=== PATIENT | female | born 1980 | race Caucasian/White ===

== ENCOUNTER 2017-08-16 13:06 | Emergency (ER) | payer BC, OTHER ==
[~2017-08-16] VITALS: Ht 167.6 cm; Wt 70.3 kg
[~2017-08-16 13:06] MED LIST: IRON18TA2 PO; OXYC1SOL5 PO; PRENCAP6 PO
--- NOTE | 2017-08-16 15:05 | MH ---
cc: ADAMARIS SARAVIA DATE OF ADMISSION: 08/16/2017 HISTORY OF PRESENT ILLNESS The patient is a 36-year-old, white female, currently with EDC of 09/11/2017. She was very active last evening with walking and overnight last evening had some low back pain, some lower abdominal groin type discomfort and was concerned about possible labor. She felt like the baby has dropped lower. She has had a little bit of nausea but no vomiting. Her bladder and bowel function have been normal. There has been no discharge or bleeding, no fever. PHYSICAL EXAMINATION On exam this is a gravid white female in no distress. The abdomen is gravid and nontender. The back is normal. An area of discomfort in the region of the round ligaments. The cervix is long, thick and closed. ASSESSMENT Back and pelvic pain, probably due to enlarging and some descent of the head. PLAN Will check UA and C&S, monitoring. If normal will discharge home on rest, heating pad and Tylenol. Return to the center if active signs of labor, leakage of fluid or decreased movement. She has an office visit tomorrow with a BPP and will keep that appointment. MD MANJU Reilly/RAUL /2:53 PM /2:59 PM
[2017-08-16 15:37] LABS: BACTERIA, URINE FEW /hpf; BLOOD, URINE NEG (NEG); COMMENT (UR) CULT NOT INDICATED; CULTURE IF INDICATED CULT NOT INDICATED; GLUCOSE,URINE NEG (NEG); KETONE, URINE NEG (NEG); NITRITE,URINE NEG (NEG); PH, URINE 6.5 (5.0-8.5); SQUAMOUS EPITHELIAL CELL URINE 7 /hpf (0-5); TRANSITIONAL EPI CELLS, URINE <1 /hpf; URINE COLOR COLORLESS (YELLW/STRAW)
--- NOTE | 2017-08-16 16:04 | PD ---
HPI Chief Complaint Patient was seen, evaluated, and examined by Dr. Marino. Dr. Marino requested I placed discharge orders as he is already left the hospital. Travel History International Travel<30 Days: No Contact w/Intl Traveler<30Days: No Known Affected Area: No Allergies-Medications (Allergen,Severity, Reaction): Coded Allergies: No Known Allergies (Unverified Adverse Reaction, Unknown, 08/16/17) Home Meds Active Scripts Oxycodone W/ Acetaminophen (Oxycodone/Acetaminophen 5-325 mg/5Ml) 5 mg/325 mg Tab, 1 TAB PO Q4H Y for PAIN SCALE 1 TO 4, #30 TAB Prov:Jose Marino MD 05/19/16 Reported Medications Ferrous Fumarate (Iron) 18 Mg Tab, 18 MG PO DAILY, TAB 05/17/16 Mv & Min W/Fe Fumarat ( 1) Cap, 1 CAP PO, CAP 07/31/13 Data Data Orders Orders Urinalysis - C+S If Indicated (08/16/17 14:54) Labs Laboratory Tests Test 08/16/17 14:00 Urine Color COLORLESS Urine Turbidity HAZY Urine pH 6.5 Urine Specific [place] 1.002 Urine Protein NEG Urine Glucose (UA) NEG Urine Ketones NEG Urine Occult Blood NEG Urine Nitrite NEG Urine Bilirubin NEG Urine Urobilinogen LESS THAN 2.0 Urine Leukocyte Esterase MOD Urine RBC 2 Urine WBC 6 Urine Squamous Epithelial Cells 7 Urine Transitional Epithelial Cells <1 Urine Bacteria FEW Microscopic Urinalysis Comment CULT NOT INDICATED MDM Diagnosis Diagnosis: Primary Impression: 36 weeks gestation of Additional Impression: False labor before 37 completed weeks of gestation Disposition: 01 DISCHARGE HOME Condition: Tyesha Brannon MD Aug 16, 2017 16:04
== END 2017-08-16 16:32 | disposition home or self-care (01) ==
LOC: HOBED 13:06
DX: O47.03 False labor before 37 completed weeks of gestation, third trimester (principal); Z3A.36 36 weeks gestation of pregnancy
CPT/HCPCS: 59025; 81001

== ENCOUNTER 2017-09-04 05:31 | Inpatient (IN) | payer OTHER ==
--- NOTE | 2017-09-03 20:21 | MH ---
cc: ADAMARIS SARAVIA DATE OF ADMISSION: 09/04/2017 ADMITTING DIAGNOSIS: 1. Term . 2. Advanced maternal age. 3. Previous x2. HISTORY OF PRESENT ILLNESS: 36-year-old white female para 2-0-1-2, last menstrual period of 11/25/2016, estimated date of confinement of 09/01/2017 by dates and 09/11/2017 by early ultrasound. Her preop course was benign. First TM screen and cfDNA testing was normal. PAST SURGICAL HISTORY: Laparoscopy in 2009. MEDICATIONS: Vitamins. ALLERGIES: NONE. TRANSFUSIONS: None. OB HISTORY: One ectopic, treated medically and two sections. SOCIAL HISTORY: She is . 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 Alcohol, tobacco and drugs: None. FAMILY HISTORY: Noncontributory. PHYSICAL EXAMINATION: GENERAL: A well-nourished well-developed white female. VITAL SIGNS: Stable. HEAD, EYES, EARS, NOSE, THROAT: Normal. CHEST: Clear. HEART: Regular rate. BREASTS: Symmetrical. ABDOMEN: Gravid. Estimated weight 3700 grams. PELVIC EXAM: The cervix is closed. Ext is normal. ASSESSMENT: As above. She is now admitted for repeat section. While in the office, I explained the procedures, the risks, benefits, complications and alternatives and the patient would like to proceed. Her last ultrasound on 08/31/17 showed a vertex presentation, normal fluid and anterior placenta. MD MANJU Reilly/GUSTAVO /7:59 PM /8:17 PM JANAK
[~2017-09-04] VITALS: Ht 167.6 cm; Wt 70.0 kg
[2017-09-04] VITALS (8 sets, daily range): BP systolic 104–128; BP diastolic 61–79; PULSE 62–81; RESP 16–18; TEMP 97.3–98.6; O2SAT 99–100
[2017-09-04] MEDS ORDERED: ACETAMINOPHEN 1000 MG/100 ML 100 ML IV ONE (06:44)
[2017-09-04] MEDS: LACTATED RINGER'S 1000 ML IV SCH ×2 (06:45→20:05)
[2017-09-04] MEDS ORDERED: LACTATED RINGER'S 1000 ML IV ONE (06:45)
[2017-09-04 06:59] LABS: AUTOMATED NEUTROPHIL # 4.5 TH/MM3 (1.8-7.7); BASOPHIL % 0.4 % (0.0-2.0); EOSINOPHIL # 0.1 TH/MM3 (0-0.4); EOSINOPHIL % 1.7 % (0.0-4.0); HEMATOCRIT 39.7 % (35.0-46.0); HEMO FLAGS DIFF FINAL; LYMPH % 33.7 % (9.0-44.0); LYMPHOCYTE # 2.6 TH/MM3 (1.0-4.8); MEAN CELL VOLUME 92.2 FL (80.0-100.0); MEAN CORPUSCULAR HEMOGLOBIN 31.9 PG (27.0-34.0); MEAN CORPUSCULAR HGB CONC 34.5 % (32.0-36.0); MONO % 6.1 % (0.0-8.0); NEUT % 58.1 % (16.0-70.0); PLATELET COUNT 141 TH/MM3 (150-450); RED BLOOD COUNT 4.31 MIL/MM3 (4.00-5.30); RED CELL DISTRIBUTION WIDTH 15.2 % (11.6-17.2); WHITE BLOOD COUNT 7.7 TH/MM3 (4.0-11.0)
[2017-09-04] MEDS ORDERED: ceFAZolin 2 GM PREMIX 50 ML IV SCH (07:00)
[2017-09-04] MEDS ORDERED: CITRIC ACID-SODIUM CITRATE LIQ 30 ML UDC PO SCH (07:00)
[2017-09-04] MEDS ORDERED: ONDANSETRON HCL 4 MG/2 ML VIAL IVP PRN (07:15)
[2017-09-04] MEDS ORDERED: MEASLES, MUMPS, RUBELLA VACCINE 0.5 ML VIAL SQ ONE (07:15)
[2017-09-04] MEDS ORDERED: oxyCODONE/ACETAMINOPHEN 5 MG/325 MG TAB PO PRN ×2 (07:15)
[2017-09-04] MEDS ORDERED: DOCUSATE SODIUM 50 MG/SENNA 8.6 MG TAB PO PRN (07:15)
[2017-09-04] MEDS ORDERED: OXYTOCIN 30 UNITS-500ML PREMIX 500 ML IV ONE (07:15)
[2017-09-04] MEDS ORDERED: KETOROLAC TROMETHAMINE 30 MG/ML (IVP) VIAL IV PUSH PRN (07:15)
[2017-09-04] MEDS ORDERED: ZOLPIDEM TARTRATE 5 MG TAB PO PRN (07:15)
[2017-09-04] MEDS ORDERED: SIMETHICONE 80 MG CHEWABLE TAB PO PRN (07:15)
[2017-09-04] MEDS: ACETAMINOPHEN 1000 MG/100 ML VIAL IV SCH ×3 (07:15→23:15)
[2017-09-04] MEDS ORDERED: KETOROLAC TROMETHAMINE 60 MG/2 ML (IM) VIAL IM PRN (07:15)
[2017-09-04] MEDS ORDERED: SODIUM CHLORIDE 0.9% FLUSH 5 ML FLUSH IV PRN (07:15)
[2017-09-04 07:32] LABS: BLOOD, URINE NEG (NEG); GLUCOSE,URINE NEG (NEG); KETONE, URINE NEG (NEG); NITRITE,URINE NEG (NEG); PH, URINE 6.5 (5.0-8.5); URINE COLOR YELLOW (YELLW/STRAW)
[2017-09-04 07:36] LABS: MUCUS URINE MOD /lpf (OCC); RBC, URINE 0-3 /hpf (0-3); WBC, URINE 0-2 /hpf (0-5)
[2017-09-04 07:37] LABS: BACTERIA, URINE OCC /hpf; COMMENT (UR) CULT NOT INDICATED; CULTURE IF INDICATED CULT NOT INDICATED
[2017-09-04 08:07] LABS: BLOOD GAS O2 HGB SATURATION 21 % (90-100); CORD BLOOD GAS HCO3 27 mmol/L (21-29); CORD BLOOD GAS PCO2 60 mmHG (34-78); CORD BLOOD GAS PH 7.28 (7.14-7.42); CORD BLOOD GAS PO2 15 mmHG (3.0-40.0)
[2017-09-04 08:08] LABS: DRAW SITE CORD BLOOD; STAT NO
--- NOTE | 2017-09-04 08:22 | MP ---
cc: MANJITADAMARIS DATE OF SURGERY 09/04/2017 PREOPERATIVE DIAGNOSES 1. Term . 2. Advanced maternal age, 36. 3. Previous x2. 4. arrhythmia. POSTOPERATIVE DIAGNOSES 1. Term . 2. Advanced maternal age, 36. 3. Previous x2. 4. arrhythmia. 5. Delivered. PROCEDURE Repeat low transverse section. ANESTHESIA Spinal. 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 FLUIDS 2 liters crystalloid. OBJECTIVE FINDINGS While being observed in Labor and Delivery, preparing for , the baby was shown to have an arrhythmia. She was prepared for the planned repeat section. Following the induction of adequate spinal anesthesia, she was prepped and draped in sterile fashion with the bladder being drained via Kelsey catheterization. The abdomen was opened through a Pfannenstiel incision using a knife to cut down to from the skin to the fascia. The fascia was opened transversely. The rectus muscle was split in the midline and the peritoneum opened sharply without incident. The bladder flap was taken down sharply and retracted inferiorly with a [place] blade. The lower uterine segment was incised transversely with a knife and extended with blunt dissection, the membranes ruptured with clear fluid. The baby was in the LOT position. The vacuum extractor was applied to the occiput and used to gently lift the head through the uterine abdominal wound. The mouth was suctioned, the cord was clamped and cut and the baby passed to the awaiting team. Cord blood was collected for ABG and for typing. There was a loose knot in the cord. The placenta was delivered manually for donation. The cavity was wiped clean with laps, the uterus exteriorized and closed in two layers of running suture, the first with a running locking stitch of 0 Vicryl and the second with a running imbricating stitch of 0 Vicryl. Posterior inspection of the uterus, tubes and ovaries was normal. The uterus was now replaced in the cavity and irrigation performed. No bleeding was evident and the bladder flap was closed with a running stitch of 3-0 Vicryl. All laps and retractors were removed, counts were correct. The anterior peritoneum was closed with a running stitch of 2-0 Vicryl, the fascia with a running locking stitch of 0 Vicryl from corner to midline and tied, the subcu with a running 3-0 Vicryl and the skin with a running subcuticular 3-0 Monocryl. Dermabond applied. All counts were correct and the patient was awakened and taken to the recovery room in good condition. MD MANJU Reilly/SSB /8:14 AM /8:18 AM
[2017-09-04] MEDS ORDERED: OXYTOCIN 30 UNITS-500ML PREMIX 500 ML ONE (09:02)
[2017-09-04] MEDS ORDERED: EPIDURAL-DO NOT ADMINISTER ANTICOAGULANTS PRN (09:30)
[2017-09-04] MEDS ORDERED: EPIDURAL-NO SYSTEMIC NARCOTICS PRN (09:30)
[2017-09-04] MEDS ORDERED: EPIDURAL-DIPHENHYDRAMINE HCL 50 MG CAP PO PRN (09:30)
[2017-09-04] MEDS ORDERED: EPIDURAL-DIPHENHYDRAMINE HCL 50 MG/ML VIAL IV PUSH PRN (09:30)
[2017-09-04] MEDS ORDERED: EPIDURAL-NALOXONE HCL 0.4 MG/ML AMP IV PUSH PRN (09:30)
[2017-09-04] MEDS: LACTATED RINGER'S 1000 ML INJ 1,000 ML IV SCH ×2 (15:49→21:29)
[2017-09-04] MEDS ORDERED: METOCLOPRAMIDE HCL 10 MG/2 ML VIAL IV PRN (17:45)
[2017-09-04] MEDS ORDERED: OXYTOCIN 30 UNITS-500ML PREMIX 500 ML IV PRN (18:15)
[2017-09-04] MEDS ORDERED: PROMETHAZINE INJ 25 MG/ML VIAL IM PRN (19:00)
[2017-09-04] MEDS: SODIUM CHLORIDE 0.9% FLUSH 5 ML FLUSH IV SCH (21:00)
[2017-09-05 00:40] VITALS: BP 106/88; PULSE 78; RESP 18; TEMP 98
[2017-09-05] MEDS: LACTATED RINGER'S 1000 ML IV SCH ×4 (00:45→19:20)
[2017-09-05 02:40] VITALS: RESP 16
[2017-09-05 03:40] VITALS: RESP 18
[2017-09-05 06:01] LABS: AUTOMATED NEUTROPHIL # 6.3 TH/MM3 (1.8-7.7); BASOPHIL % 0.4 % (0.0-2.0); EOSINOPHIL % 0.4 % (0.0-4.0); HEMATOCRIT 39.5 % (35.0-46.0); HEMO FLAGS DIFF FINAL; LYMPH % 25.1 % (9.0-44.0); LYMPHOCYTE # 2.3 TH/MM3 (1.0-4.8); MEAN CELL VOLUME 91.8 FL (80.0-100.0); MEAN CORPUSCULAR HEMOGLOBIN 31.6 PG (27.0-34.0); MEAN CORPUSCULAR HGB CONC 34.4 % (32.0-36.0); MONO % 5.8 % (0.0-8.0); NEUT % 68.3 % (16.0-70.0); PLATELET COUNT 131 TH/MM3 (150-450); RED BLOOD COUNT 4.31 MIL/MM3 (4.00-5.30); RED CELL DISTRIBUTION WIDTH 14.7 % (11.6-17.2); WHITE BLOOD COUNT 9.2 TH/MM3 (4.0-11.0)
[2017-09-05 06:25] LABS: BICARBONATE 26.5 MEQ/L (21.0-32.0); POTASSIUM 3.6 MEQ/L (3.5-5.1)
[2017-09-05 08:00] VITALS: BP 104/66; PULSE 71; RESP 16; TEMP 97.7
[2017-09-05] MEDS: IBUPROFEN 600 MG TAB PO PRN ×2 (08:30→15:43)
[2017-09-05] MEDS: ACETAMINOPHEN 1000 MG/100 ML 100 ML IV SCH ×2 (08:57→17:05)
[2017-09-05] MEDS ORDERED: DIPHTH/TETANUS/ACEL PERTUSSIS (BOOSTER) 0.5 ML VIAL/PFS IM ONE (17:24)
[2017-09-05] MEDS: SODIUM CHLORIDE 0.9% FLUSH 5 ML FLUSH IV SCH (19:20)
[2017-09-05 19:24] VITALS: BP 102/64; PULSE 67; RESP 16; TEMP 98.4; O2SAT 97
[2017-09-06] MEDS: IBUPROFEN 600 MG TAB PO PRN ×4 (00:09→18:55)
[2017-09-06] MEDS: ACETAMINOPHEN 1000 MG/100 ML 100 ML IV SCH ×2 (00:09→09:44)
[2017-09-06] MEDS ORDERED: IBUP-232 PO (13:19)
[2017-09-06] MEDS ORDERED: OXYC1TAB63 PO (13:19)
--- NOTE | 2017-09-06 13:20 | HHI.DCPOC ---
Discharge Care Plan Your Health Problems Are: delivery Report Symptoms to Your Doctor -Temperature above 100.5 degrees -Redness, of incision or excessive or foul smelling drainage -Unusual pain or calf pain -Increased vaginal bleeding -Painful or difficulty urinating -Feelings of extreme sadness or anxiety after 2 weeks Goals to Promote Your Health * To prevent worsening of your condition and complications * To maintain your health at the optimal level Directions to Meet Your Goals Take your medications as prescribed Follow your dietary instruction Follow activity as directed Ensure plenty of rest for recovery Drink fluids for hydration Keep your appointments as scheduled Take your immunizations and boosters as scheduled If your symptoms worsen call your PCP, if no PCP go to Urgent Care Center or Emergency Room Smoking is Dangerous to Your Health. Avoid second hand smoke Call the 24-hour crisis hotline for domestic abuse at Vero Santiago MD Sep 06, 2017 13:20
[2017-09-06 20:11] VITALS: BP 123/85; PULSE 64; RESP 16; TEMP 97.7
[2017-09-06] MEDS: ACETAMINOPHEN 325 MG TAB PO PRN (21:25)
[2017-09-06] MEDS ORDERED: oxyCODONE/ACETAMINOPHEN 5 MG/325 MG TAB PO PRN (21:30)
--- NOTE | 2017-09-06 23:17 | HHI.OB ---
Subjective Post Operative Day: 1 Remarks pain controlled, mod lochia, charanjit po, +void/flatus. baby in NICU on cardiac catheterization technologist for atrial bigeminy Objective Vitals/I&O Vital Signs Date Time Temp Pulse Resp B/P (MAP) Pulse Ox O2 Delivery O2 Flow Rate FiO2 09/06/17 20:11 97.7 64 16 123/85 (98) Result Diagram: 09/05/1743409/05/17434 Objective Remarks GENERAL: Well-nourished, well-developed patient. CARDIOVASCULAR: Regular rate and rhythm without murmurs, gallops, or rubs. RESPIRATORY: Breath sounds equal bilaterally. No accessory muscle use. ABDOMEN/GI: Abdomen soft, non-tender, bowel sounds present. Incision: Clean, dry and intact. Fundus: Firm, non-tender at umbilicus. GENITOURINARY: Light to moderate bleeding. EXTREMITIES: No cyanosis or edema, non-tender, without signs of DVT. Medications and IVs Current Medications Medications (Trade) Dose Ordered Sig/Linda Route Start Time Stop Time Status Last Admin Lactated Ringer's 1,000 ml @ 150 mls/hr Q6H40M IV 09/04/17 06:45 09/05/17 00:45 (Bicitra Liq) 30 ml MAIL READER PO 09/04/17 07:00 09/07/17 06:59 09/04/17 08:31 Cefazolin Sodium/ Dextrose 50 ml @ 100 mls/hr MAIL READER IV 09/04/17 07:00 09/07/17 06:59 09/04/17 08:31 (NS Flush) 2 ml BID IV 09/04/17 09:00 (NS Flush) 2 ml UNSCH PRN IV 09/04/17 07:15 (Mylicon Chew) 80 mg QID PRN PO 09/04/17 07:15 (Motrin) 600 mg Q6H PRN PO 09/04/17 07:15 09/06/17 18:55 (Percocet 5-325 Mg) 2 tab Q4H PRN PO 09/04/17 07:15 (Giselle-Colace) 2 tab Q12H PRN PO 09/04/17 07:15 09/05/17 08:30 (Ambien) 5 mg HS PRN PO 09/04/17 07:15 (Zofran Inj) 4 mg Q6H PRN IVP 09/04/17 07:15 09/04/17 15:03 (Reglan Inj) 10 mg Q6H PRN IV 09/04/17 17:45 09/04/17 18:03 (Phenergan Inj) 25 mg Q6H PRN IM 09/04/17 19:00 Acetaminophen 100 ml @ 400 mls/hr Q8H IV 09/05/17 09:00 09/06/17 09:44 (Percocet 5-325 Mg) 1 tab Q4H PRN PO 09/06/17 21:30 (Tylenol) 650 mg Q4H PRN PO 09/06/17 21:30 09/06/17 21:25 Assessment/Plan Problem List: (1) delivery, delivered, current hospitalization ICD Codes: O82 - Encounter for delivery without indication Status: Acute Plan: routine pp care d/c home in Vero Burrell MD Sep 06, 2017 23:17
[2017-09-07] MEDS: IBUPROFEN 600 MG TAB PO PRN (02:15)
[2017-09-07] MEDS: ACETAMINOPHEN 325 MG TAB PO PRN (02:15)
[2017-09-07 08:00] VITALS: BP 121/82; PULSE 67; RESP 18; TEMP 98.5
--- NOTE | 2017-09-07 09:08 | HHI.DS ---
Admission Date Sep 04, 2017 at 05:31 Discharge Date: Sep 07, 2017 Admitting Diagnosis repeat Diagnosis: Delivery Date: Sep 04, 2017 : Repeat Hospital Course pt was admitted for repeat . by pod 3 pt was voiding, passing gas, with good pain control and stable for d/c home. Pt Condition on Discharge: Stable Discharge Disposition: Discharge Home Discharge Instructions Diet Instructions: As Tolerated, No Restrictions Additional Diet Instructions: Drink at least 8 - 16 oz bottles of water a day Activities You Can Perform: Shower Only-No Bath Activities to Avoid: Prolonged Standing, Strenuous Activity, Sexual Activity Additional Activity Instruc.: No driving until off pain medications Do not lift anything heavier than your baby in an carrier Vero Santiago MD Sep 07, 2017 09:08
== END 2017-09-07 11:05 | disposition home or self-care (01) | DRG 766 ==
LOC: H2EB 05:31 → EDSTATUS 07:30 → H1EA 08:35
PROVIDERS: ADMIT Obstetrics & Gynecology; ATTEND Obstetrics & Gynecology
PROC: 10D00Z1 Extraction of Products of Conception, Low, Open Approach (ICD-10-PCS; principal; 2017-09-04)
DX: O34.211 Maternal care for low transverse scar from previous cesarean delivery (principal); Z37.0 Single live birth; Z3A.40 40 weeks gestation of pregnancy
CPT/HCPCS: 59025; 76815; 80048; 80307; 81001; 82805; 85025; 86703; 86850; 86900; 86901; 90715; J0131; J0690; J1885; J2405; J2590; J2765; J7120